=== PATIENT | male | born 1975 ===

== ENCOUNTER 2023-09-29 18:03 | Emergency (ER) | payer SELFPAY ==
[~2023-09-29] VITALS: Ht 172.7 cm; Wt 73.8 kg
[2023-09-29 18:31] VITALS: TEMP 98.6
[2023-09-29 19:00] VITALS: PULSE 62; RESP 17; O2SAT 99
[2023-09-29 19:58] LABS: BASOPHILS % (AUTO) 0.3 % (0-1); EOSINOPHILS # (AUTO) 0.1 X10'3 (0-0.9); EOSINOPHILS % (AUTO) 1.6 % (0-6); LYMPHOCYTES # (AUTO) 1.3 X10'3 (1.1-4.8); LYMPHOCYTES % (AUTO) 22.1 % (21-51); MEAN PLATELET VOLUME 8.4 FL (7.4-10.4); MONOCYTES # (AUTO) 0.6 X10'3 (0-0.9); MONOCYTES % (AUTO) 10.1 % (2-12); NEUTROPHILS % (AUTO) 65.9 % (42-75); PLATELET COUNT 359 X10'3 (140-440); WHITE BLOOD COUNT 6.1 X10'3 (4.5-11.0)
[2023-09-29 20:07] LABS: ACETAMINOPHEN < 2.0 UG/ML (10-30); ALANINE AMINOTRANSFERASE 25 U/L (12-78); ALBUMIN 2.9 G/DL (3.4-5.0); ALBUMIN/GLOBULIN RATIO 0.9 (1.1-1.5); ALKALINE PHOSPHATASE 149 IU/L (46-116); ANION GAP 10 (8-16); ASPARTATE AMINO TRANSFERASE 43 U/L (10-37); BILIRUBIN,TOTAL 0.2 MG/DL (0.1-1.0); BLOOD UREA NITROGEN 8 MG/DL (7-18); BUN/CREATININE RATIO 15.7 (10.0-20.0); CALCIUM 6.6 MG/DL (8.5-10.1); CHLORIDE 106 MMOL/L (99-107); CREATININE 0.51 MG/DL (0.60-1.10); GLUCOSE 92 MG/DL (70-104); POTASSIUM 3.3 MMOL/L (3.5-5.1); SALICYLATE 0.7 MG/DL (4.0-20.0); SODIUM 135 MMOL/L (135-145); TOTAL CARBON DIOXIDE 18.7 MMOL/L (24-32); TOTAL PROTEIN 6.1 G/DL (6.4-8.2); eCRCL 170 ML/MIN; eGFR > 90 ML/MIN
[2023-09-29 20:14] LABS: ETHANOL < 10 MG/DL (<10)
[2023-09-29 20:25] LABS: APTT 27 SECONDS (22-32); INR 1.2 INR; PROTHROMBIN TIME 12.3 SECONDS (9.0-12.0)
[2023-09-29] MEDS ORDERED: Potassium Cl inj 20 MEQ in normal saline 1000ml 990 ML IV SCH (20:30)
[2023-09-29 20:36] LABS: HEMATOCRIT 23.8 % (42.0-52.0); MEAN CORPUSCULAR HEMOGLOBIN 18.6 PG (27.0-31.0); MEAN CORPUSCULAR HGB CONC 31.9 g/dL (33.0-36.5); MEAN CORPUSCULAR VOLUME 58.3 FL (78-98); RED BLOOD COUNT 4.08 X10'6 (4.70-6.10)
[2023-09-29] MEDS ORDERED: potassium Cl 20mEq in NS 1,000 ML IV SCH (20:53)
[2023-09-29 21:00] VITALS: BP 150/89
[2023-09-29 21:05] LABS: ANISOCYTOSIS 3+; MICROCYTOSIS 3+; PLATELET ESTIMATE NORMAL
[2023-09-29] MEDS: naloxone 2mg/2ml inj IV STA (21:05)
[2023-09-29 21:09] LABS: ELLIPTOCYTES FEW; HYPOCHROMASIA 1+; POIKILOCYTOSIS FEW
[2023-09-29 21:10] LABS: SCHISTOCYTES FEW; TARGET CELLS FEW
[2023-09-29] MEDS ORDERED: LORazepam 2 mg/ml vial IV ONE (21:25)
[2023-09-29 21:26] LABS: CREATINE KINASE 294 U/L (39-308); MAGNESIUM 2.1 MG/DL (1.5-2.4)
[2023-09-30 10:12] LABS: HEMOGLOBIN 7.6 g/dl (14.0-17.9)
== END 2023-09-29 21:47 | disposition home or self-care (01) ==
LOC: ER 18:04
DX: T40.2X1A Poisoning by other opioids, accidental (unintentional), initial encounter (principal); G92.9 Unspecified toxic encephalopathy; R79.1 Abnormal coagulation profile; Y92.89 Other specified places as the place of occurrence of the external cause
CPT/HCPCS: 36415; 70450; 71045; 80053; 80320; 80329; 82550; 83735; 84145; 84484; 85008; 85025; 85610; 85730; 93005; 96374; 99291; J2310